=== PATIENT | male | born 1995 | race Caucasian/White ===

== ENCOUNTER 2016-11-14 10:36 | Emergency (ER) | payer BC ==
[2016-11-14 11:06] VITALS: BP 122/80
--- NOTE | 2016-11-14 11:19 | UC ---
Lower Extremity/Ankle HPI - HPI Summary HPI Summary: complaint of right ramiro toe pain that started to bother hi approx 2 months ago has had intermittent apin and sweeling on the medial side of his toenail painful when it is touched ambulating without difficulty has tried to pull the ingrwn ait of nail out without relief no other treatments - History of Current Complaint Chief Complaint: [facility] Stated Complaint: BIG TOE PAIN Time Seen by Provider: 11/14/16 11:11 Hx Obtained From: Patient, Family/Driver License Examiner - Allergies/Home Medications Allergies/Adverse Reactions: Allergies Allergy/AdvReac Type Severity Reaction Status Date / Time No Known Allergies Allergy Verified 11/14/16 11:03 PMH/Surg Hx/FS Hx/Imm Hx Previously Healthy: Yes - Surgical History Surgical History: None - Family History Known Family History: Negative: Cardiac Disease, Hypertension, Diabetes - Social History Occupation: Unemployed Lives: With Family Alcohol Use: None Substance Use Type: None Smoking Status (MU): Never Smoked Tobacco - Immunization History Most Recent Influenza Vaccination: Not the Review of Systems Constitutional: Negative Skin: Other - ingrwon toenail Eyes: Negative ENT: Negative Respiratory: Negative Cardiovascular: Negative Gastrointestinal: Negative Genitourinary: Negative Motor: Negative Neurovascular: Negative Musculoskeletal: Negative Neurological: Negative Psychological: Negative All Other Systems Reviewed And Are Negative: Yes Physical Exam Triage Information Reviewed: Yes Appearance: No Pain Distress, Well-Nourished Vital Signs: Initial Vital Signs Temp 97.6 F 11/14/16 11:01 Pulse 88 11/14/16 11:01 Resp 16 11/14/16 11:01 BP 122/80 11/14/16 11:01 Pulse Ox 100 11/14/16 11:01 Vital Signs Reviewed: Yes Eyes: Positive: Conjunctiva Clear ENT: Positive: Normal ENT inspection Neck: Positive: No Lymphadenopathy Respiratory: Positive: Lungs clear, Normal breath sounds, No respiratory distress Cardiovascular: Positive: RRR, No Murmur, Pulses Normal Abdomen Description: Positive: Nontender, Soft Bowel Sounds: Positive: Present Musculoskeletal: Positive: Other: - RLE- great toe with erythema and edema on medial side of toe, fluctuant area beneath medial side of toenail Neurological: Positive: Alert Psychological Exam: Normal Skin: Positive: Other - see musckolskelatal Procedures - Procedure Summary Procedure Summary: partial toenail removal right medial side of great toe toe cleansed with betadyne lidocaine 2% digital block medial side toenail removed sterile dressing applied pt tolerated well Lower Extremity Course/Dx - Differential Dx/Diagnosis Differential Diagnosis/HQI/PQRI: Cellulitis, Infection, Other - ingrown toenail Provider Diagnoses: ingrown toenail- right great toe with cellulitis. partial toenail removal Discharge - Discharge Plan Condition: Stable Disposition: HOME Prescriptions: Cephalexin CAP* [Keflex CAP*] 500 mg PO TID #30 cap Patient Education Materials: Toenail/Fingernail Removal (ED) Referrals: Maxi DOSHI,Emi [Primary Care Provider] - Additional Instructions: Please take antibiotic as directed. change dressing daily Increase fluids and rest Take acetaminophen or ibuprofen for fever or pain If you develop an increase in pain, redness swelling or fever return to urgent care or primary care for further evaluation. Please review your discharge instructions. If your symptoms do not improve please call your primary care provider or return to urgent care.
[2016-11-14] MEDS ORDERED: Lidocaine 2% PF * 5 ML VIAL ONE (11:31)
== END 2016-11-14 11:57 | disposition home or self-care (01) ==
LOC: UCCORT 10:36
DX: L60.0 Ingrowing nail (principal); L03.031 Cellulitis of right toe
CPT/HCPCS: 11765; 99202; G0463